=== PATIENT | female | born 1950 | race Caucasian/White ===

== ENCOUNTER 2018-07-25 03:50 | Inpatient (IN) | payer OTHER ==
[~2018-07-25] VITALS: Ht 149.9 cm; Wt 66.7 kg
[2018-07-25] MEDS ORDERED: HYDROCHLOROTHIA25 MG (04:01)
[2018-07-25] MEDS ORDERED: LATANOPROST2.5 ML (04:02)
[2018-07-25] MEDS ORDERED: OMEPRAZOLE20 M1 (04:02)
[2018-07-25] MEDS ORDERED: COZAAR100 MG (04:02)
[2018-07-25] MEDS ORDERED: RESTASIS1 EACH (04:02)
[2018-07-25] MEDS ORDERED: SYNTHROID50 MCG (04:03)
[2018-07-25] MEDS ORDERED: BETIMOL5 M1 (04:03)
[2018-07-25] MEDS ORDERED: SIMVASTATIN10 MG (04:03)
--- NOTE | 2018-07-25 04:04 | NUR ---
SE RECIBE PACIENTE ALERTA Y ORIENTADA REFIERE TENER NINI DOLOR ABDOMINAL, INDICA ESTOS SINTOMAS COMENZARON HACE VARIOS ZEPEDA. REFIERE DESDE LAS 12 AM EL DOLOR COMENZO A AUMENTAR. INDICA PADECER DE DIVERTICULOS. REFIERE FAHEEM TENIDOS VARIOS EPISODIOS DE DIARREAS.
--- NOTE | 2018-07-25 04:33 | NUR ---
PACIENTE ALERTA Y ORIENTADA EVALUADA POR EL DR. WILLAMS SE ORIENTA A PACIENTE SOBRE TRATAMIENTO MEDICO SE EXTRAN MUESTRAS DE MOR Y SE ADMINISTRAN MEDICAMENTOS MELISSA ORDEN MEDICA BAJO MEDIDAS ASEPTICAS.
--- NOTE | 2018-07-25 07:13 | NUR ---
SE RECIBE PTE LA CUAL SE ENCUENTRA EN CAMA CON BARANDAS ELEVADAS, ACOMPANADA POR FAMILIAR, LA MISMA PRESENTA AREA DE VENOPUNCION PINA DE EDEMA Y ENROJEICMIENTO CON IV FLUID PTE. PTE PEND A CT ABD PO AT 8:00AM.
[2018-07-29] MEDS ORDERED: LEVOTHYROXINE75 MCG PO (16:43)
[2018-07-29] MEDS ORDERED: CIPRO500 MG PO (16:44)
[2018-07-29] MEDS ORDERED: FLAGYL500MG PO (16:44)
== END 2018-07-29 16:59 | disposition home or self-care (01) | DRG 392 ==
LOC: ER 03:50 → MEDJ 19:08
PROVIDERS: ADMIT Internal Medicine
PROC: 8E0ZXY6 Isolation (ICD-10-PCS; principal; 2018-07-25)
PROC: BW21ZZZ Computerized Tomography (CT Scan) of Abdomen and Pelvis (ICD-10-PCS; 2018-07-25)
DX: K52.89 Other specified noninfective gastroenteritis and colitis (principal); C50.911 Malignant neoplasm of unspecified site of right female breast; E86.0 Dehydration; I10 Essential (primary) hypertension; K21.9 Gastro-esophageal reflux disease without esophagitis; K57.30 Diverticulosis of large intestine without perforation or abscess without bleeding; E78.49 Other hyperlipidemia; E03.8 Other specified hypothyroidism; E78.00 Pure hypercholesterolemia, unspecified